=== PATIENT | male | born 1985 | race Caucasian/White ===

== ENCOUNTER 2019-03-03 01:38 | Emergency (ER) | payer BC ==
[~2019-03-03] VITALS: Ht 193 cm; Wt 131.1 kg
[~2019-03-03 01:38] MED LIST: NORCO 10-325 T1 EACH PO
[2019-03-03] MEDS ORDERED: IBUPROFEN800 MG PO (01:44)
[2019-03-03] MEDS ORDERED: CLINDAMYCIN HC300 MG PO (02:16)
[2019-03-03] MEDS ORDERED: NORCO 5-325 TA1 EACH PO (02:16)
== END 2019-03-03 02:39 | disposition home or self-care (01) ==
LOC: ED 01:38
DX: K08.89 Other specified disorders of teeth and supporting structures (principal); F17.200 Nicotine dependence, unspecified, uncomplicated
CPT/HCPCS: 99282